=== PATIENT | female | born 1985 | race Caucasian/White ===

== ENCOUNTER 2019-09-29 15:15 | Outpatient (CLI) | payer OTHER, SELFPAY ==
--- NOTE | ~2019-09-29 | US_ITS ---
EXAMINATION: US pelvic complete DATE: 09/29/2019 16:11 CDT INDICATION: Irregular menses TECHNIQUE: Multiple transabdominal sonographic images of the pelvis performed. FINDINGS: Uterus measures 8.9 x 3.6 x 5.3 cm. The endometrial complex measures 6 mm. The right ovary measures 2.8 x 1.9 x 2.5 cm cm and the left ovary measures 2.9 x 1.9 x 2.2 cm cm. No ovarian mass or cyst is identified. No free fluid in the pelvis. IMPRESSION: 1: Normal pelvic ultrasound. Reviewed, dictated and finalized at location A.
== END 2019-09-29 15:16 | disposition home or self-care (01) ==
PROVIDERS: PCP Physician Assistant; Visit Provider Physician Assistant
DX: N92.6 Irregular menstruation, unspecified (principal)
CPT/HCPCS: 76856

== ENCOUNTER 2019-12-20 12:32 | Emergency (ER) | payer OTHER, SELFPAY ==
[2019-12-20 12:50] VITALS: BP 133/81; PULSE 60; RESP 18; TEMP 36.6; O2SAT 99
--- NOTE | 2019-12-20 13:08 | ED.WOUNDLAC ---
HPI - Wound/Laceration General Chief Complaint: Wound/Laceration Stated Complaint: L HAND LACERATION Time Seen by Provider: 12/20/19 12:49 Source: patient Mode of arrival: ambulatory Limitations: no limitations History of Present Illness HPI narrative: 34-year-old with no major medical problems here with complaints of laceration to the left third and fourth fingers sustained few hours ago at work. Patient states that she was slicing, accidentally cut her fingers. She denies any other injuries. She is not quite sure about her last tetanus. Onset (ago): hour(s) (1) Location: other (left 3 and 4 th fingers tip) Place: work Context: accidental Associated symptoms: none Related Data Home Medications Medication Instructions Recorded Confirmed escitalopram oxalate [Lexapro] 10 mg PO DAILY 12/20/19 lamotrigine 200 mg PO 12/20/19 trazodone 100 mg PO 12/20/19 Allergies Allergy/AdvReac Type Severity Reaction Status Date / Time amoxicillin Allergy Unknown Unknown Verified 12/20/19 12:53 Review of Systems Review of Systems: All systems reviewed & are unremarkable except as noted in HPI and below Constitutional: Constitutional: Reports no additional constitutional complaints Eyes: Eyes: Reports no additional eye complaints ENT: Reports as per HPI Cardiovascular: Cardiovascular: Reports as per HPI Respiratory: Respiratory: Reports as per HPI Gastrointestinal: Gastrointestinal: Reports as per HPI Musculoskeletal: Musculoskeletal: Reports no additional musculoskeletal complaints [facility] Family History Family History Mother Hypertension Father Patient's father is Social History Social History Smoking status: Current every day smoker Second hand tobacco smoke exposure: No Alcohol intake: never Gender identity (if verbalized by the patient): Female Exam Narrative: Exam Narrative: GENERAL: Well-appearing, well-nourished, and in no acute distress. HEAD: Normocephalic, atraumatic. EYES: PERRLA and EOMI. ENT: Nares clear, no rhinorrhea or epistaxis. Mucous membranes moist. NECK: Supple. CHEST: Clear to auscultation. No respiratory distress. HEART: Regular rate and rhythm. No murmur heard. Normal peripheral pulses. EXTREMITIES: Normal range of motion. No edema. skin Avulsion of 3 and 4th fingers tips SKIN: Warm, dry, no rash. NEURO: No focal deficits. Alert and oriented x3. PSYCH: Normal mood and affect. Course Vital Signs Vital signs: Vital Signs Temperature 36.6 C 12/20/19 12:50 Pulse Rate 60 12/20/19 12:50 Respiratory Rate 18 12/20/19 12:50 Blood Pressure 133/81 12/20/19 12:50 Pulse Oximetry 99 12/20/19 12:50 Temperature 36.6 C 12/20/19 12:50 Pulse Rate 60 12/20/19 12:50 Respiratory Rate 18 12/20/19 12:50 Blood Pressure 133/81 12/20/19 12:50 Pulse Oximetry 99 12/20/19 12:50 MDM - Wound/Laceration MDM Narrative Medical decision making narrative: informed pt there skin to suture it back together , advised to keep the wound clean . Discharge Plan Discharge Clinical Impression: Avulsion of skin Patient Disposition: Home, Self-Care Condition: Stable Instructions: Antibiotic Form, Skin Avulsion (ED) Prescriptions: New cephalexin [Keflex] 500 mg capsule 500 mg PO Q8H Qty: 21 RF: 0 hydrocodone-acetaminophen [[place]] 5-325 mg tablet 1 tablet PO Q8H PRN (Reason: pain) Qty: 10 RF: 0 No Action lamotrigine 200 mg tablet 200 mg PO RF: 0 trazodone 100 mg tablet 100 mg PO RF: 0 escitalopram oxalate [Lexapro] 10 mg Tablet 10 mg PO DAILY RF: 0 Follow-up/Referrals: Shakir Botello MD [Physician] - Mily,DELMY Almodovar [Primary Care Provider] - Time of Disposition: 13:22
[2019-12-20] MEDS: TETANUS,DIPHTHERIA,AC PERTUSSIS ADULT (0.5 ML) BOOSTRIX IM (13:18)
[2019-12-20 13:36] VITALS: BP 127/83; PULSE 66; RESP 17; O2SAT 100
== END 2019-12-20 13:37 | disposition home or self-care (01) ==
PROVIDERS: Emergency Provider Family Medicine; PCP Physician Assistant
DX: S61.213A Laceration without foreign body of left middle finger without damage to nail, initial encounter (principal); S61.215A Laceration without foreign body of left ring finger without damage to nail, initial encounter; F17.200 Nicotine dependence, unspecified, uncomplicated; Z23 Encounter for immunization; W26.9XXA Contact with unspecified sharp object(s), initial encounter
CPT/HCPCS: 90471; 90715; 99283

== ENCOUNTER 2020-12-02 09:17 | Emergency (ER) | payer OTHER, SELFPAY ==
--- NOTE | ~2020-12-02 | XR_ITS ---
EXAMINATION: [id number] DATE: 12/02/2020 10:55 INDICATION: Left neck pain. TECHNIQUE: 3 views of the cervical spine were obtained. COMPARISON: Cervical spine radiographs 03/04/2011 FINDINGS: Bone alignment is normal. Vertebral body heights and intervertebral disc heights are normal . There is mild facet joint osteoarthritis at C7-T1. IMPRESSION: 1. Mild facet joint osteoarthritis at C7-T1. Reviewed, dictated and finalized at location A.
[2020-12-02 09:19] VITALS: BP 122/87; PULSE 80; RESP 18; TEMP 36.2; O2SAT 100
--- NOTE | 2020-12-02 10:56 | ED.NECK ---
HPI - Neck Pain/Injury General Chief Complaint: Neck Pain/Injury Stated Complaint: right sided neck pain for a couple months Time Seen by Provider: 12/02/20 10:33 History of Present Illness HPI Narrative: Patient presents with left-sided neck pain. Patient reports her pain initially started on the right but is now on the left. Her left-sided neck pain has been present for the past month and getting progressively worse. Reports she just woke up with the pain she not report any trauma or injuries. Pain is worse with certain movements of the neck particularly with rotation. She denies any focal numbness or weakness she denies any midline pain denies any nausea vomiting headaches, fevers Related Data Home Medications Medication Instructions Recorded Confirmed escitalopram oxalate [Lexapro] 10 mg PO DAILY 12/20/19 lamotrigine 200 mg PO 12/20/19 trazodone 100 mg PO 12/20/19 norgestimate-ethinyl estradiol tablet 12/02/20 12/02/20 [Ange] Allergies Allergy/AdvReac Type Severity Reaction Status Date / Time amoxicillin Allergy Unknown Unknown Verified 12/02/20 11:47 Review of Systems Review of Systems: CONSTITUTIONAL: Denies fever, chills, or sweats. EYES: Denies visual changes, redness, or discharge. ENT: Denies rhinorrhea, congestion, sore throat, or otalgia. CARDIOVASCULAR: Denies chest pain, palpitations, or edema. RESPIRATORY: Denies cough or dyspnea. GASTROINTESTINAL: Denies abdominal pain, nausea, vomiting, or diarrhea. GENITOURINARY: Denies dysuria or hematuria. SKIN: Denies rash or itching. MUSCULOSKELETAL: Denies back pain, joint pain, or myalgia. NEUROLOGIC: Denies headache, numbness, dizziness, or weakness. PSYCHIATRIC: Denies anxiety or depression. All systems reviewed & are unremarkable except as noted in HPI and below PMFSH Family History Family History Mother Hypertension Father Patient's father is Social History Social History Smoking status: Current every day smoker Second hand tobacco smoke exposure: No Alcohol intake: never Gender identity (if verbalized by the patient): Female Exam Narrative: GENERAL: Well-appearing, well-nourished, and in no acute distress. HEAD: Normocephalic, atraumatic. EYES: PERRLA and EOMI. ENT: Nares clear, no rhinorrhea or epistaxis. Mucous membranes moist. NECK: Supple. No masses. No JVD, no midline neck pain. Mild tenderness palpation along the superior aspect of the left trapezius range of motion is intact mild pain elicited with rotation to the left EXTREMITIES: Normal range of motion. No edema. SKIN: Warm, dry, no rash. NEURO: 5 out of 5 strength in the bilateral upper extremities with sensation intact to light touch alert and oriented x3. PSYCH: Normal mood and affect. Course Reevaluation(s) Reevaluation #1: patietn resting comfortably results and plan reviewed with patient. Date: 12/02/20 Time: 11:36 Vital Signs Vital signs: Vital Signs Temperature 36.2 C L 12/02/20 09:19 Pulse Rate 80 12/02/20 09:19 Respiratory Rate 18 12/02/20 09:19 Blood Pressure 122/87 12/02/20 09:19 Pulse Oximetry 100 12/02/20 09:19 Temperature 36.2 C L 12/02/20 09:19 Pulse Rate 77 12/02/20 12:30 Respiratory Rate 18 12/02/20 12:30 Blood Pressure 125/93 H 12/02/20 12:30 Pulse Oximetry 99 12/02/20 12:30 MDM - Neck Pain/Injury MDM Narrative Medical decision making narrative: H&P as above, vss, pt looks clinically well, exam without focal neurological deficits, ranging with mild arthritis, additional labs/img considered, symptomatic relief available as needed, on reevaluation pt continues to looks clinically well. Suspect soft tissue strain, dns fracture, cord compromise plan to tx/monitor as op w/ pcm f/u findings/plan discussed with pt, pt agree/comfortable with plan, return precautions given Imaging Data R
[2020-12-02] MEDS: KETOROLAC 30 MG/ML VIAL (*BKC) IM (11:45)
[2020-12-02 12:30] VITALS: BP 125/93; PULSE 77; RESP 18; O2SAT 99
== END 2020-12-02 12:30 | disposition home or self-care (01) ==
PROVIDERS: Emergency Provider Emergency Medicine; PCP Physician Assistant
DX: S16.1XXA Strain of muscle, fascia and tendon at neck level, initial encounter (principal); F17.210 Nicotine dependence, cigarettes, uncomplicated; Y33.XXXA Other specified events, undetermined intent, initial encounter
CPT/HCPCS: 72040; 96372; 99283; J1885